=== PATIENT | female | born 1970 ===

== ENCOUNTER 2017-09-20 17:41 | Observation (INO) | payer MEDICAID ==
[2017-09-20 17:41] VITALS: BMI 24.7
--- NOTE | 2017-09-20 18:30 | ED PDOC ---
Syncope/Near Syncope/Dizziness Time Seen by Provider: 09/20/17 17:55 Chief Complaint (Nursing): Weakness/Neurological Deficit Chief Complaint (Provider): Reccurent Near Syncopal Episodes History Per: Patient History/Exam Limitations: no limitations Onset/Duration Of Symptoms: Days Seizure Or Post-ictal Symptoms: None Fall Associated With With Symptoms: No Additional Complaint(s): Vadim Pickard, a 47 year old female, presents to the ED complaining of recurrent near syncopal episodes that have been occurring since Thursday. The patient reports that she has these near syncopal episodes at least once per day. She states that she would be performing her usual day to day activities and then would suddenly feel as though she is about to lose consciousness. The patient states that her first episode on Thursday was associated with a cold feeling ot her left chest that she describe as "water dripping onto her chest". Today, she reports that her symptoms occured just when she was about to eat. As per patient, her episodes are associated with feelings of doom, headache and a dull stomach pain. As per patient, when her symptoms occur she has to stop all activity and sit down and her symptoms would resolve in under a minute. She reports that the episodes are spontaneous and she is very anxious about losing consciousness. Denies chest pain and shortness of breath. Of note: Patient states that during these episodes she feel numbness and tingling to her extremities specifically to her left arm and left hand. In between episodes she otherwise feels well PMD: Danial Patel Past Medical History Reviewed: Historical Data, Nursing Documentation, Vital Signs Vital Signs: Last Vital Signs Temp 98.6 F 09/20/17 17:46 Pulse 94 H 09/20/17 17:46 Resp 16 09/20/17 17:46 BP 142/76 09/20/17 17:46 Pulse Ox 100 09/20/17 17:46 - Medical History PMH: Hypothyroidism (takes 25 mg synthroid daily) Denies: Chronic Kidney Disease - Surgical History Surgical History: No Surg Hx - Family History Family History: States: Other Other Family History: hyperlipidemia - Social History Current smoker - smoking cessation education provided: No Ex-Smoker (has not smoked in the last 12 months): No Alcohol: None - Home Medications Home Medications: Ambulatory Orders Medication Instructions Recorded Levothyroxine [Synthroid] 25 mcg PO DAILY 09/20/17 - Allergies Allergies/Adverse Reactions: Allergies Allergy/AdvReac Type Severity Reaction Status Date / Time No Known Allergies Allergy Verified 12/17/15 10:43 Review of Systems ROS Statement: Except As Marked, All Systems Reviewed And Found Negative Neurological: Positive for: Numbness (numbness and tingling to left hand and arm ), Other (near syncopal episodes) Physical Exam - Reviewed Nursing Documentation Reviewed: Yes - Physical Exam Appears: Positive for: Non-toxic, No Acute Distress Head Exam: Positive for: ATRAUMATIC, NORMOCEPHALIC Skin: Positive for: Warm, Dry Eye Exam: Positive for: EOMI, PERRL ENT: Negative for: Pharyngeal Erythema, Tonsillar Exudate Neck: Positive for: Painless ROM, Supple Cardiovascular/Chest: Positive for: Regular Rate, Rhythm, Chest Non Tender. Negative for: Murmur Respiratory: Positive for: Normal Breath Sounds. Negative for: Wheezing, Respiratory Distress Gastrointestinal/Abdominal: Positive for: Soft. Negative for: Tenderness, Mass , Distended Back: Positive for: Normal Inspection. Negative for: Decreased ROM Extremity: Positive for: Normal ROM. Negative for: Deformity Lymphatic: Negative for: Adenopathy Neurologic/Psych: Positive for: Alert, Oriented (x3), Mood/Affect (anxious affect). Negative for: Motor/Sensory Deficits - Laboratory Results Result Diagrams: 09/20/17 18:51 09/20/17 18:51 Interpretation Of Abn Labs: No emergently significant lab abnormalities - ECG ECG: Positive for: Interpreted By Wi ECG Rhythm: Positive for: Normal QRS, Normal ST Segment, Sinus Rhythm O2 Sat by Pulse Oximetry: 100 (RA) Pulse Ox Interpretation: Normal Medical Decision Making Medical Decision Makin Initial Impression 47 y/o female presenting with recurrent near syncopal episodes Differentials not limited to but including: electrolyte abnormality thyroid dysfunction migraine atypical, brain mass, arrhythmia, anemia, dehydration Initial Plan: * Type and Screen * CT Head w/o Contrast * EKG * B-type natriuretic * CMP * Free T4 * FT3 * Magnesium * Phosphorous * T3 * T4 * TSH * Upreg * Udip * CBC * Ortho * Back pain * Caujsag-Ieenh-DWM * Reevaluation Orthostatic vitals demonstrate possible dehydration. IVF 500 cc NS bolus ordered. No emergently significant lab abnormalities. DW pt findings and need for hospitalization for possible intermittent dysrythmia. ANURAG Pop admitting for Dr Kody Pace Cardiology. Requests echo. DW Dr Hyatt Neuro. Requests MRI. Scribe Attestation Documented by Claudia Eckert acting as a scribe for Eliane Sears MD. Provider Attestation All medical record entries made by the Scribe were at my direction and personally dictated by me. I have reviewed the chart and agree that the record accurately reflects my personal performance of the history, physical exam, medical decision making, and the department course for this patient. I have also personally directed, reviewed, and agree with the discharge instructions and disposition. Disposition - Clinical Impression Clinical Impression: Near syncope Counseled Patient/Family Regarding: Studies Performed, Diagnosis - Disposition Disposition Time: 21:00 Condition: GUARDED - Pt Status Changed To: Hospital Disposition Of: Observation - POA Present On Arrival: None
[2017-09-20] MEDS ORDERED: Sodium Chloride 0.9% 500 ML IV STA (18:44)
[2017-09-20 18:57] LABS: BASO # 0.1 K/uL (0.0-0.2); BASO % 0.6 % (0.0-2.0); EOS # 0.2 K/uL (0.0-0.7); EOS % 1.9 % (0.0-4.0); HEMATOCRIT 35.5 % (34.0-47.0); LYMPH # 1.8 K/uL (1.0-4.3); LYMPH % 19.1 % (20.0-40.0); MEAN CELL VOLUME 79.2 fl (81.0-99.0); MEAN CORPUSCULAR HEMOGLOBIN 24.9 pg (27.0-31.0); MEAN CORPUSCULAR HGB CONC 31.5 g/dL (33.0-37.0); MEAN PLATELET VOLUME 7.3 fl (7.2-11.7); MONO # 0.5 K/uL (0.0-0.8); MONO % 4.8 % (0.0-10.0); NEUT # 7.1 K/uL (1.8-7.0); NEUT % 73.6 % (50.0-75.0); RED CELL DISTRIBUTION WIDTH 13.7 % (11.5-14.5); WHITE BLOOD COUNT 9.7 K/uL (4.8-10.8)
[2017-09-20 19:07] LABS: CALCIUM 9.2 mg/dL (8.4-10.2)
[2017-09-20 19:10] LABS: ALB/GLOB RATIO 1.3 (1.0-2.1); ALKALINE PHOSPHATASE 113 U/L (38-126); ALT/SGPT 41 U/L (9-52); AST/SGOT 29 U/L (14-36); BILIRUBIN,TOTAL 0.3 mg/dl (0.2-1.3); BLOOD UREA NITROGEN 12 mg/dl (7-17); CARBON DIOXIDE 24 mmol/L (22-30); CHLORIDE 104 mmol/L (98-107); GFR AFRICAN-AMERICAN > 60; GLUCOSE,RANDOM 98 mg/dL (65-105); MAGNESIUM 2.1 MG/DL (1.6-2.3); POTASSIUM 3.7 MMOL/L (3.6-5.0); SODIUM 142 mmol/l (132-148); TOTAL PROTEIN 8.4 G/DL (6.3-8.2)
[2017-09-20 19:23] LABS: T4 10.5 ug/dl (5.5-11.0)
[2017-09-20 19:37] LABS: THYROID STIMULATING HORMONE 1.43 mIU/ML (0.46-4.68)
--- NOTE | 2017-09-20 19:51 | CT ---
EXAM: CT Head Without Intravenous Contrast EXAM DATE/TIME: 09/20/2017 6:18 PM CLINICAL HISTORY: 47 years old, female; Pain; Headache and other: Headaches with episodes of near syn. Weakness; Additional info: Headaches with episodes of near syncope TECHNIQUE: Axial computed tomography images of the head/brain without intravenous contrast. All CT scans at this facility use one or more dose reduction techniques, viz.: automated exposure control; ma/kV adjustment per patient size (including targeted exams where dose is matched to indication; i.e. head); or iterative reconstruction technique. Coronal and sagittal reformatted images were created and reviewed. COMPARISON: There are no prior studies for comparison. FINDINGS: Brain: Ventricles are normal in size and configuration. There is no midline shift. There are no intra-axial or extra-axial mass lesions or areas of hemorrhage. There are no abnormal fluid collections. Bryant-white differentiation is maintained. Ventricles: See above. Bones: Cranial vault is intact. Soft tissues: unremarkable Sinuses: There is no acute sinusitis. Ears and mastoids: Middle ears and mastoids are unremarkable Orbits: Orbital contents are unremarkable. IMPRESSION: No acute intracranial abnormality
[2017-09-21] MEDS ORDERED: Levothyroxine 25 MCG TAB PO SCH (06:30)
--- NOTE | 2017-09-21 08:07 | CARD ---
APPROVED REPORT EKG Measurement Heart [id number] <Conclusion> Normal sinus rhythm Normal ECG
[2017-09-21] MEDS ORDERED: Enoxaparin 40 mg Syringe SC SCH (09:00)
--- NOTE | 2017-09-21 10:36 | CARD ---
APPROVED REPORT EXAM: Two-dimensional and M-mode echocardiogram with Doppler and color Doppler. Other Information Quality : GoodRhythm : NSR INDICATION Syncope 2D DIMENSIONS IVSd0.82 (0.7-1.1cm)LVDd3.88 (3.9-5.9cm) LVOT Diameter1.78 (1.8-2.4cm)PWd0.85 (0.7-1.1cm) IVSs1.26 (0.8-1.2cm)LVDs2.43 (2.5-4.0cm) FS (%) 37.4 %PWs1.12 (0.8-1.2cm) M-Mode DIMENSIONS Left Atrium (MM)2.80 (2.5-4.0cm)IVSd1.00 (0.7-1.1cm) Aortic Root2.58 (2.2-3.7cm)LVDd4.40 (4.0-5.6cm) Aortic Cusp Exc.1.89 (1.5-2.0cm)PWd0.93 (0.7-1.1cm) IVSs1.36 cmFS (%) 41 % LVDs2.58 (2.0-3.8cm)PWs1.55 cm Mitral Valve MV E Vneybpro20.7cm/sMV DECEL [id number] A Cpcxerdw73.4cm/s MV XOM76ntQ/A ratio1.9MVA (PHT)4.36cm2 TDI Lateral E' Peak V11.90cm/sMedial E' Peak V9.94cm/sE/Lateral E'5.8 E/Medial E'6.9 Pulmonary Valve PV Peak Exomombh77.3cm/s LEFT VENTRICLE The left ventricle is normal size. There is normal left ventricular wall thickness. Left ventricle systolic function is normal. The Ejection Fraction is 65-70%. There is normal LV segmental wall motion. The left ventricular diastolic function is normal. RIGHT VENTRICLE The right ventricle is normal size. There is normal right ventricular wall thickness. The right ventricular systolic function is normal. ATRIA The left atrium size is normal. The right atrium size is normal. AORTIC VALVE The aortic valve is normal in structure. No aortic regurgitation is present. There is no aortic valvular stenosis. MITRAL VALVE The mitral valve is normal in structure. There is no evidence of mitral valve prolapse. There is no mitral valve stenosis. There is no mitral valve regurgitation noted. TRICUSPID VALVE The tricuspid valve is normal in structure. There is no tricuspid valve regurgitation noted. PULMONIC VALVE The pulmonary valve is normal in structure. There is no pulmonic valvular regurgitation. GREAT VESSELS The aortic root is normal in size. The IVC is normal in size and collapses >50% with inspiration. PERICARDIAL EFFUSION The pericardium appears normal. <Conclusion> The left ventricle is normal size. There is normal left ventricular wall thickness. There is normal LV segmental wall motion. Left ventricle systolic function is normal. The Ejection Fraction is 65-70%. The left ventricular diastolic function is normal.
--- NOTE | 2017-09-21 10:52 | US ---
PROCEDURE: Duplex ultrasound of the carotid and vertebral arteries. HISTORY: Near syncope episode COMPARISON: None available. TECHNIQUE: Grayscale and duplex Doppler evaluation of the cervical carotid and vertebral arteries were performed. The common carotid, carotid bifurcations and cervical ICA and proximal ECA were evaluated. The vertebral arteries were evaluated for gross patency and direction. FINDINGS: RIGHT CAROTID ARTERIES: Common Carotid Artery: Normal. Maximal flow velocity of 135 cm/s. Carotid Bifurcation: Normal. Internal Carotid Artery:Normal. Maximal flow velocity of 122 cm/s. External Carotid Artery (proximal branches): Normal. Maximal flow velocity of 104 cm/s. ICA/CCA Ratio: 0.9 LEFT CAROTID ARTERIES: Common Carotid Artery: Intimal thickening is present Maximal flow velocity of 171 cm/s. Carotid Bifurcation: Heterogeneous plaque formation. Internal Carotid Artery:Heterogeneous plaque formation. Maximal flow velocity of 129.9 cm/s. External Carotid Artery (proximal branches): Normal. Maximal flow velocity of 27.7 cm/s. ICA/CCA Ratio: 0.8 VERTEBRAL ARTERIES: Right Vertebral Artery: Patent. Antegrade flow. Left Vertebral Artery: Patent. Antegrade flow. OTHER FINDINGS: None. IMPRESSION: Right ICA degree of stenosis: Less than 50% Left ICA degree of stenosis: 50-69 % Reference Internal Carotid Artery (ICA) Peak Systolic Velocity (PSV) for above: 1. Less than 50% stenosis less than 125 cm/s peak systolic velocity 2. 50-69% stenosis 125-230cm/s peak systolic velocity 3. Greater than 70% but less than near occlusion greater than 230 cm/s peak systolic velocity
[2017-09-21 12:07] LABS: FT3 3.74 pg/mL (2.77-5.27)
[2017-09-21 12:13] VITALS: BP 98/59; PULSE 66; RESP 16; TEMP 98.4; O2SAT 100
--- NOTE | 2017-09-21 16:14 | CON ---
NEUROLOGY CONSULTATION DATE: CHIEF COMPLAINT: Near syncope. HISTORY OF PRESENT ILLNESS: This is a 47-year-old woman with no significant past medical history, who has been having near syncopal events and having palpitations and getting very anxious prior to the episode, felt like she was going to pass out, but is not. Currently, her carotid Doppler showed no significant hemodynamic stenosis, just mild left ICA stenosis of 50% to 69%. Echocardiogram was normal. Her blood pressures systolic and diastolic on the lower side, but otherwise currently, she is doing well; no chest pain; no changes in sense, vision, taste, or smell. No history of any seizure episodes in the past. PAST MEDICAL HISTORY: Non-significant. ALLERGIES: NO KNOWN DRUG ALLERGIES. REVIEW OF SYSTEMS: A 14-point review of system is negative except for the HPI. FAMILY HISTORY: Noncontributory. SOCIAL HISTORY: No illicit drug use, smoking or ETOH abuse. PHYSICAL EXAMINATION VITAL SIGNS: Temperature is 98, pulse rate of 66, blood pressure of 98/59, respiratory rate of 16, oxygen saturation 100% by room air. GENERAL: The patient is sitting up in bed, in no acute distress. HEENT: Head is atraumatic and normocephalic. PERRLA. Extraocular muscles are intact. NECK: Supple. No JVD. No adenopathy noted. LUNGS: Clear to auscultation. No adventitious sounds. HEART: S1 and S2. Normal rate and rhythm. No murmurs, rubs, or gallops. ABDOMEN: Soft, nontender, and nondistended. Bowel sounds are present. EXTREMITIES: No clubbing. No cyanosis. Peripheral pulses 2+ felt bilaterally. NEUROLOGIC: The patient is alert and oriented to person, place, month, and year. Speech is fluent without any errors. Cranial nerves II through XII are intact. Motor exam: Moves all extremities equally. Toes are downgoing bilaterally. Sensory exam: Light touch, pinprick, proprioception, and vibration is intact. DTRs are 2+ throughout. Coordination: Upvajx-op-nntt intact. Gait is normal. LABORATORY DATA: Unremarkable. ASSESSMENT AND PLAN: This is a 47-year-old woman who presented with near syncope events, likely secondary from underlying transient cerebral hypoperfusion in the brain from dehydration and underlying anxiety disorder. At this time, we recommend: 1. Relaxation techniques. 2. Aspirin 81 mg p.o. daily. 3. Follow up as an outpatient. Thank you for this consult. Bon Hyatt MD
--- NOTE | 2017-09-22 12:04 | CP.PCM.HP ---
History of Present Illness - History of Present Illness History of Present Illness: This is a 47 y/o female admitted for multiple episode Claims that she has been having a lot of severe dizziness and near syncope for the past few days. Has no chest pain or SOB. Past Patient History - Past Medical History & Family History Past Medical History?: Yes - Past Social History Smoking Status: Never Smoked - CARDIAC Hx Cardiac Disorders: No - PULMONARY Hx Respiratory Disorders: No - NEUROLOGICAL Hx Neurological Disorder: No - HEENT Hx HEENT Problems: No - RENAL Hx Chronic Kidney Disease: No - ENDOCRINE/METABOLIC Hx Hypothyroidism: Yes (takes 25 mcg synthroid daily) - HEMATOLOGICAL/ONCOLOGICAL Hx Blood Disorders: No - INTEGUMENTARY Hx Dermatological Problems: No - MUSCULOSKELETAL/RHEUMATOLOGICAL Hx Musculoskeletal Disorders: No Hx Falls: No - GASTROINTESTINAL Hx Gastrointestinal Disorders: Yes Other/Comment: HX DIVERTICULITIS - GENITOURINARY/GYNECOLOGICAL Hx Genitourinary Disorders: No - PSYCHIATRIC Hx Psychophysiologic Disorder: No Hx Emotional Abuse: No Hx Physical Abuse: No Hx Substance Use: No - SURGICAL HISTORY Hx Surgeries: No - ANESTHESIA Hx Anesthesia: No Hx Anesthesia Reactions: No Hx Malignant Hyperthermia: No Meds Allergies/Adverse Reactions: Allergies Allergy/AdvReac Type Severity Reaction Status Date / Time No Known Allergies Allergy Verified 12/17/15 10:43 Results - Vital Signs Recent Vital Signs: Last Vital Signs Temp 98.4 F 09/21/17 12:12 Pulse 66 09/21/17 12:12 Resp 16 09/21/17 12:12 BP 98/59 L 09/21/17 12:12 Pulse Ox 100 09/21/17 12:12 - Labs Result Diagrams: 09/20/17 18:51 09/20/17 18:51 Labs: Laboratory Results - last 24 hr 09/20/17 18:51 Free T3 pg/mL 3.74
== END 2017-09-21 15:30 | disposition left against medical advice (07) ==
LOC: H.ER 17:41 → H.ERHOLD 20:35 → H.TEL 22:12
PROVIDERS: ADMIT Family Medicine; ATTEND Family Medicine
DX: R55 Syncope and collapse (principal); E03.9 Hypothyroidism, unspecified
CPT/HCPCS: 70450; 80053; 81025; 82948; 83735; 83880; 84100; 84436; 84443; 84481; 85025; 86850; 86900; 93005; 93306; 93880; 99285; G0378; J7040